=== PATIENT | female | born 1960 ===

== ENCOUNTER → 2017-03-16 | Outpatient (CLI) | payer OTHER ==
[2017-03-21 15:57] LABS: HEMATOCRIT 27.8 % (34.2-44.1); HEMOGLOBIN 8.8 g/dL (12.0-16.0); RED BLOOD COUNT 3.06 x10e6/uL (3.6-5.1)
[2017-03-21 15:58] LABS: ANION GAP 15.2 mmol/L (8-16); CREATININE, SERUM 3.03 mg/dL (0.57-1.11); EOSINOPHILS % 0.8 % (0.0-6.0); LYMPHOCYTES % 1.2 % (18.0-39.1); MEAN CORPUSCULAR HEMOGLOBIN 28.8 pg (28-32); MEAN CORPUSCULAR HGB CONC 31.7 g/dL (31-35); MEAN CORPUSCULAR VOLUME 90.8 fL (81-99); MONOCYTES % 0.5 % (4.4-11.3); PLATELET COUNT 227 x10e3/uL (140-360); POTASSIUM 4.2 mmol/L (3.5-5.1)
[2017-03-21 15:59] LABS: ALBUMIN 2.6 g/dL (3.5-5.0); ALBUMIN/GLOBULIN RATIO 0.6 (0.8-2.0); CALCIUM 9.2 mg/dL (8.4-10.2)
[2017-03-21 16:00] LABS: MAGNESIUM 2.1 MG/DL (1.3-2.1)
[2017-03-23 19:28] LABS: ANION GAP 15.3 mmol/L (8-16); CREATININE, SERUM 2.87 mg/dL (0.57-1.11); MAGNESIUM 2.2 MG/DL (1.3-2.1); PHOSPHORUS 3.9 MG/DL (2.3-4.7); POTASSIUM 4.3 mmol/L (3.5-5.1)
[2017-03-24 15:38] LABS: BASOPHILS % 0.2 % (0.0-1.0); EOSINOPHILS % 8.3 % (0.0-6.0); HEMATOCRIT 26.7 % (34.2-44.1); HEMOGLOBIN 8.8 g/dL (12.0-16.0); LYMPHOCYTES # (AUTO) 1.4 (1.0-3.2); LYMPHOCYTES % 11.5 % (18.0-39.1); MEAN CORPUSCULAR HEMOGLOBIN 29.1 pg (28-32); MEAN CORPUSCULAR VOLUME 88.4 fL (81-99); MONOCYTES # (AUTO) 1.1 (0.2-0.8); NEUTROPHILS # (AUTO) 8.6 (2.1-6.9); NEUTROPHILS % 70.3 % (38.7-80.0); PLATELET COUNT 249 x10e3/uL (140-360); RED BLOOD COUNT 3.02 x10e6/uL (3.6-5.1); RED CELL DISTRIBUTION WIDTH 16.8 % (11.7-14.4)
[2017-03-24 15:46] LABS: ANION GAP 16.3 mmol/L (8-16); CALCIUM 9.2 mg/dL (8.4-10.2); CREATININE, SERUM 2.89 mg/dL (0.57-1.11); POTASSIUM 4.3 mmol/L (3.5-5.1)
== END ==
LOC: NPA 10:00
DX: R69 Illness, unspecified (principal)
CPT/HCPCS: 36415; 80048; 80053; 83735; 84100; 85025; 87493

== ENCOUNTER → 2017-03-19 | Outpatient (CLI) | payer OTHER | LOC: NPA 13:00 | DX: R69 Illness, unspecified (principal) ==

== ENCOUNTER → 2017-03-20 | Outpatient (CLI) | payer OTHER | LOC: NPA 13:00 | PROVIDERS: ATTEND Internal Medicine Critical Care Medicine | DX: R69 Illness, unspecified (principal) ==

== ENCOUNTER → 2017-03-23 | Outpatient (CLI) | payer OTHER | LOC: NPA 17:00 | PROVIDERS: ATTEND Internal Medicine Critical Care Medicine | DX: Z02.89 Encounter for other administrative examinations (principal) ==

== ENCOUNTER → 2017-03-29 | Outpatient (CLI) | payer OTHER ==
[2017-03-29 12:14] LABS: ANION GAP 17.4 mmol/L (8-16); CALCIUM 9.1 mg/dL (8.4-10.2); CREATININE, SERUM 2.77 mg/dL (0.57-1.11); POTASSIUM 4.4 mmol/L (3.5-5.1)
== END ==
LOC: NPA 11:00
DX: Z02.89 Encounter for other administrative examinations (principal)
CPT/HCPCS: 36415; 80048